=== PATIENT | female | born 1995 | race Caucasian/White ===

== ENCOUNTER 2018-05-17 06:55 | Emergency (ER) | payer BC ==
--- NOTE | 2018-05-17 07:40 | ER Document Report ---
ED General - General Chief Complaint: Abdominal Pain Stated Complaint: ABDOMINAL PAIN Time Seen by Provider: 05/17/18 07:16 Notes: Patient is a 23-year-old female that presents to the emergency department for chief complaint of abdominal pain. Patient reports he started having diffuse abdominal pain, over the last several days, and seemingly worsened, and has made his way down to the right lower quadrant, which she rates as a 7 out of 10 , the pain continues to be diffuse as well though, and seemingly getting progressively worse. She does have a history of an enlarged ovarian cyst, that has been being monitored, last time she had it evaluated was a few months ago. She also reports she has had rectal bleeding about a week ago but has not had any since then, she denies history of inflammatory bowel disease, she has had one other episode like this in the past, no rectal bleeding today. She denies having lightheadedness, fevers, chills, night sweats, dysuria, hematuria. Past Medical History: Ovarian cysts Past Surgical History: [place] teeth, tonsillectomy, adenoidectomy Social History: Denies tobacco use, admits to occasional alcohol use, and denies illicit drug use. Family History: Reviewed and noncontributory for presenting illness Allergies: Reviewed, see documented allergy list. REVIEW OF SYSTEMS: Other than noted above, the 12 point review of systems was reviewed with the patient and were negative, all pertinent findings are included in the HPI. PHYSICAL EXAMINATION: Vital signs reviewed, nursing noted reviewed. GENERAL: Well-appearing, well-nourished and appears uncomfortable HEAD: Atraumatic, normocephalic. EYES: Eyes appear normal, extraocular movements intact, sclera anicteric, conjunctiva are normal. ENT: nares patent, oropharynx clear without exudates. Moist mucous membranes. NECK: Normal range of motion, supple without lymphadenopathy LUNGS: Breath sounds clear to auscultation bilaterally and equal. No wheezes rales or rhonchi. HEART: Heart rate tachycardic, regular rhythm ABDOMEN: Soft, diffuse abdominal tenderness to palpation, worse in the left upper quadrant and right lower quadrant, normoactive bowel sounds. No rebound, guarding, or rigidity. No masses appreciated. EXTREMITIES: Nontender, good range of motion, no pitting or edema. NEUROLOGICAL: No focal neurological deficits. Moves all extremities spontaneously Motor and sensory grossly intact on exam. PSYCH: Normal mood, normal affect. SKIN: Warm, Dry, normal turgor, no rashes or lesions noted on exposed skin TRAVEL OUTSIDE OF THE [place] IN LAST 30 DAYS: No - Related Data Allergies/Adverse Reactions: No Known Allergies Allergy (Verified 05/17/18 07:41) Past Medical History - Social History Smoking Status: Never Smoker Family History: Reviewed & Not Pertinent Physical Exam - Vital signs Vitals: Temp Pulse Resp BP Pulse Ox 99.9 F 116 H 15 114/67 100 05/17/18 07:02 05/17/18 07:02 05/17/18 07:02 05/17/18 07:02 05/17/18 07:02 Course - Re-evaluation Re-evalutation: Patient seen and examined vital signs reviewed. Laboratory data and imaging were ordered as appropriate for the patient's presenting symptoms and complaint, with consideration of any critical or life threatening conditions that may be associated with their obtained history and exam as noted above. Patient was treated with IV fluids, Toradol, morphine for pain as well as Motrin for nausea Results were reviewed when available and demonstrated CT essentially unremarkable, possible ileus some small loops of bowel are mildly distended, appendix was normal, reevaluated the patient, she was still having pain, I did give her IV Dilaudid, which did seem to help her, I discussed this case with the on-call surgeon, who recommended obtaining a transvaginal ultrasound to evaluate for possible cyst, this did demonstrate an ovarian cyst, but this would not explain the patient's pain, I added a CRP to the patient's workup, which was markedly elevated at 89, I have a suspicion that this patient has inflammatory bowel disease such as Crohn's disease has she has had bloody bowel movements, and has some small bowel findings on CT imaging, I will give her a dose of Solu-Medrol, she was treated for possible urinary tract infection with Rocephin, as her UA was positive, I will discharge her on ciprofloxacin and Flagyl, for possible enteritis, infectious versus inflammatory, and with prednisone for 60 mg for 5 days, will advise follow-up with gastroenterology, patient given oxycodone to take for pain. She was agreeable to this plan of care, and advised if her symptoms did not improve or worsen to return to the emergency department. Evaluation was most consistent with abdominal pain, UTI, enteritis Results were discussed with the patient at this point, after careful consideration I feel that that patient can be discharged from the emergency department, the patient was educated treatments and reasons to return to the emergency department based on their presumed diagnosis as noted above, they were advised to followup with a primary care physician in 2-3 days. Patient was agreeable to plan of care. *Note is created using voice recognition software and may contain spelling, syntax or grammatical errors. Laboratory 05/17/18 05/17/18 05/17/18 08:00 08:00 08:00 WBC 17.8 H RBC 4.34 Hgb 13.9 Hct 39.9 MCV 92 MCH 32.1 MCHC 34.9 RDW 13.5 Plt Count 294 Seg Neutrophils % 88.8 H Lymphocytes % 6.9 L Monocytes % 4.1 Eosinophils % 0.0 Basophils % 0.2 Absolute Neutrophils 15.8 H Absolute Lymphocytes 1.2 Absolute Monocytes 0.7 Absolute Eosinophils 0.0 Absolute Basophils 0.0 Sodium 140.9 Potassium 4.4 Chloride 104 Carbon Dioxide 23 Anion Gap 14 BUN 12 Creatinine 0.83 Est GFR ( Amer) > 60 Est GFR (Non-Af Amer) > 60 Glucose 118 H Calcium 9.4 Total Bilirubin 1.9 H Direct Bilirubin 0.3 Neonat Total Bilirubin Not Reportable Neonat Direct Bilirubin Not Reportable Neonat Indirect Bili Not Reportable AST 19 ALT 22 Alkaline Phosphatase 65 Troponin I C-Reactive Protein Total Protein 6.9 Albumin 4.0 Lipase 32.2 Serum HCG, Qual NEGATIVE Urine Color Urine Appearance Urine pH Ur Specific Collins Urine Protein Urine Glucose (UA) Urine Ketones Urine Blood Urine Nitrite Urine Bilirubin Urine Urobilinogen Ur Leukocyte Esterase Urine WBC (Auto) Squamous Epi Cells Auto Amorphous Sediment Auto Urine Mucus (Auto) Urine Ascorbic Acid 05/17/18 05/17/18 05/17/18 08:00 08:00 08:00 WBC RBC Hgb Hct MCV MCH MCHC RDW Plt Count Seg Neutrophils % Lymphocytes % Monocytes % Eosinophils % Basophils % Absolute Neutrophils Absolute Lymphocytes Absolute Monocytes Absolute Eosinophils Absolute Basophils Sodium Potassium Chloride Carbon Dioxide Anion Gap BUN Creatinine Est GFR ( Amer) Est GFR (Non-Af Amer) Glucose Calcium Total Bilirubin Direct Bilirubin Neonat Total Bilirubin Neonat Direct Bilirubin Neonat Indirect Bili AST ALT Alkaline Phosphatase Troponin I < 0.012 C-Reactive Protein 89.3 H Total Protein Albumin Lipase Serum HCG, Qual Urine Color YELLOW Urine Appearance TURBID Urine pH 5.0 Ur Specific Collins 1.029 Urine Protein 30 H Urine Glucose (UA) NEGATIVE Urine Ketones 20 H Urine Blood NEGATIVE Urine Nitrite NEGATIVE Urine Bilirubin NEGATIVE Urine Urobilinogen NEGATIVE Ur Leukocyte Esterase LARGE H Urine WBC (Auto) 19 Squamous Epi Cells Auto 6 Amorphous Sediment Auto 1+ Urine Mucus (Auto) MANY Urine Ascorbic Acid NEGATIVE Abdomen/Pelvis CT 05/17/18 07:42 IMPRESSION: 1. THERE ARE A FEW LOOPS OF SMALL BOWEL IN THE LEFT UPPER QUADRANT WHICH ARE SOMEWHAT DILATED. THIS HAS A NONSPECIFIC APPEARANCE. THIS COULD REPRESENT MILD FOCAL ILEUS, POSSIBLE GASTROENTERITIS. DEVELOPING MECHANICAL OBSTRUCTION COULD BE POSSIBLE BUT LESS LIKELY. 2. NORMAL APPENDIX. 3. NO OTHER SIGNIFICANT OR ACUTE FINDING IN THE ABDOMEN OR PELVIS ON CT SCAN WITH IV CONTRAST. Transvaginal US 05/17/18 12:18 IMPRESSION: SIMPLE CYST IN THE RIGHT OVARY. OTHERWISE UNREMARKABLE TRANSVAGINAL PELVIC ULTRASOUND. - Vital Signs Vital signs: Temp Pulse Resp BP Pulse Ox 101.6 F H 81 16 121/66 98 05/17/18 11:25 05/17/18 11:25 05/17/18 11:25 05/17/18 11:25 05/17/18 11:25 - Laboratory Result Diagrams: 05/17/18 08:00 05/17/18 08:00 Laboratory results interpreted by me: 05/17/18 05/17/18 05/17/18 08:00 08:00 08:00 WBC 17.8 H Seg Neutrophils % 88.8 H Lymphocytes % 6.9 L Absolute Neutrophils 15.8 H Glucose 118 H Total Bilirubin 1.9 H C-Reactive Protein Urine Protein 30 H Urine Ketones 20 H Ur Leukocyte Esterase LARGE H 05/17/18 08:00 WBC Seg Neutrophils % Lymphocytes % Absolute Neutrophils Glucose Total Bilirubin C-Reactive Protein 89.3 H Urine Protein Urine Ketones Ur Leukocyte Esterase Discharge - Discharge Clinical Impression: Abdominal pain Qualifiers: Abdominal location: generalized Qualified Code(s): R10.84 - Generalized abdominal pain Ovarian cyst Qualifiers: Laterality: right Qualified Code(s): N83.201 - Unspecified ovarian cyst, right side UTI (urinary tract infection) Qualifiers: Urinary tract infection type: site unspecified Hematuria presence: without hematuria Qualified Code(s): N39.0 - Urinary tract infection, site not specified Condition: Stable Disposition: HOME, SELF-CARE Instructions: Abdominal Pain ([facility]), Urinary Tract Infection ([facility]) Additional Instructions: Please follow-up with gastroenterology, call for an appointment today or tomorrow, take all medications as prescribed, slowly increase her diet from clear liquids, to advance to more solid foods over the next 3-4 days. If your symptoms are worsening or not controlled at home, do not hesitate to return to the emergency department. Prescriptions: Oxycodone HCl [Oxy-Ir 5 mg Tablet] 5 mg PO Q6HP PRN #14 tab PRN Reason: abdominal pain Ciprofloxacin HCl [Cipro 500 mg Tablet] 500 mg PO BID #14 tablet Metronidazole [Flagyl] 500 mg PO Q8H #21 tablet Prednisone [Deltasone 20 mg Tablet] 3 tab PO DAILY #15 tablet Referrals: MARY PONCE MD [ACTIVE STAFF] - Follow up tomorrow NIRMALA NELSON MD [ACTIVE STAFF] - Follow up tomorrow
[2018-05-17] MEDS ORDERED: RINGERS SOLUTION,LACTATED 1,000 ML IV ONE (07:41)
[2018-05-17] MEDS ORDERED: MORPHINE SULFATE 10 MG/ML INJ IV ONE (07:42)
[2018-05-17] MEDS ORDERED: ONDANSETRON HCL INJ/PF 4 MG/2 ML SDV IV ONE (07:42)
[2018-05-17 08:24] LABS: AMORPHOUS SEDIMENT,URINE 1+ /HPF; APPEARANCE,URINE TURBID; BILIRUBIN,URINE NEGATIVE (NEGATIVE); COLOR,URINE YELLOW; GLUCOSE, URINE NEGATIVE (NEGATIVE); KETONES,URINE 20 mg/dL (NEGATIVE); LEUKOCYTE ESTERASE,URINE LARGE (NEGATIVE); NITRITE,URINE NEGATIVE (NEGATIVE); PROTEIN,URINE 30 mg/dL (NEGATIVE); URINE SPECIFIC GRAVITY 1.029; UROBILINOGEN,URINE NEGATIVE mg/dL (<2.0)
[2018-05-17 08:28] LABS: ABSOLUTE LYMPHOCYTES (AUTO) 1.2 10^3/uL (0.5-4.7); ABSOLUTE MONOCYTES (AUTO) 0.7 10^3/uL (0.1-1.4); ABSOLUTE NEUT (AUTO) 15.8 10^3/uL (1.7-8.2); BASOPHILS % (AUTO) 0.2 % (0-2); HEMATOCRIT 39.9 % (36.0-47.0); HEMOGLOBIN 13.9 g/dL (12.0-15.5); LYMPHOCYTES % (AUTO) 6.9 % (13-45); MEAN CORPUSCULAR HEMOGLOBIN 32.1 pg (27.0-33.4); MEAN CORPUSCULAR HGB CONC 34.9 g/dL (32.0-36.0); MEAN CORPUSCULAR VOLUME 92 fl (80-97); MONOCYTES % (AUTO) 4.1 % (3-13); PLATELET COUNT 294 10^3/uL (150-450); RED BLOOD COUNT 4.34 10^6/uL (3.72-5.28); RED CELL DISTRIBUTION WIDTH 13.5 % (11.5-14.0); SEGMENTED NEUTROPHILS % (AUTO) 88.8 % (42-78); TOTAL CELLS COUNTED % (AUTO) 100 %; WHITE BLOOD COUNT 17.8 10^3/uL (4.0-10.5)
[2018-05-17 08:47] LABS: ALANINE AMINOTRANSFERASE 22 U/L (9-52); ALKALINE PHOSPHATASE 65 U/L (38-126); ANION GAP 14 (5-19); ASPARTATE AMINO TRANSFERASE 19 U/L (14-36); BILIRUBIN,DIRECT 0.3 mg/dL (0.0-0.4); BILIRUBIN,TOTAL 1.9 mg/dL (0.2-1.3); BLOOD UREA NITROGEN 12 mg/dL (7-20); CALCIUM 9.4 mg/dL (8.4-10.2); CARBON DIOXIDE 23 mmol/L (22-30); CHLORIDE 104 mmol/L (98-107); GLUCOSE 118 mg/dL (75-110); LIPASE 32.2 U/L (23-300); POTASSIUM 4.4 mmol/L (3.6-5.0); SODIUM 140.9 mmol/L (137-145); TOTAL PROTEIN 6.9 g/dL (6.3-8.2)
--- NOTE | 2018-05-17 11:00 | RADIOLOGY REPORT (SQ) ---
EXAM DESCRIPTION: CT ABD/PELVIS WITH IV ONLY COMPLETED DATE/TIME: 05/17/2018 10:33 am REASON FOR STUDY: rlq abdominal pain COMPARISON: None. TECHNIQUE: CT scan of the abdomen and pelvis performed using helical scanning technique with dynamic intravenous contrast injection. No oral contrast. Images reviewed with lung, soft tissue, and bone windows. Reconstructed coronal and sagittal MPR images reviewed. Delayed images for evaluation of the urinary system also acquired. All images stored on PACS. All CT scanners at this facility use dose modulation, iterative reconstruction, and/or weight based d osing when appropriate to reduce radiation dose to as low as reasonably achievable (ALARA). [facility]: Dose Right [facility]: CareDose [facility]: Dose Right [facility]: Teradose 4D [facility]: [employer] CONTRAST TYPE AND DOSE: contrast/concentration: Isovue 350.00 mg/ml; Total Contrast Delivered: 100.0 ml; Total Saline Delivered: 72.0 ml RENAL FUNCTION: GFR > 60. RADIATION DOSE: CT Rad equipment meets quality standard of care and radiation dose reduction techniq ues were employed. CTDIvol: 13.8 - 17.7 mGy. DLP: 1757 mGy-cm.. LIMITATIONS: None. FINDINGS: LOWER CHEST: No significant findings. No nodules or infiltrates. LIVER: Normal size. No masses. No dilated ducts. SPLEEN: Normal size. No focal lesions. PANCREAS: No masses. No significant calcifications. No adjacent inflammation or peripancreatic fluid collections. Pancreatic duct not dilated. GALLBLADDER: No identified stones by CT criteria. No inflammatory changes to suggest cholecystitis. ADRENAL GLANDS: No significant masses or asymmetry. RIGHT KIDNEY AND URETER: No solid masses. No significant calcifications. No hydronephrosis or hyd roureter. LEFT KIDNEY AND URETER: No solid masses. No significant calcifications. No hydronephrosis or hydr oureter. AORTA AND VESSELS: No aneurysm. No dissection. Renal arteries, SMA, celiac without stenosis. RETROPERITONEUM: No retroperitoneal adenopathy, hemorrhage or masses. BOWEL AND PERITONEAL CAVITY: Dilation of a few of the proximal small bowel loops in the left upper qu adrant. No masses or inflammatory changes. No free fluid or peritoneal masses. APPENDIX: Normal. PELVIS: No mass. No free fluid. Normal bladder. ABDOMINAL WALL: No masses. No hernias. BONES: No significant or acute findings. OTHER: No other significant finding. IMPRESSION: 1. THERE ARE A FEW LOOPS OF SMALL BOWEL IN THE LEFT UPPER QUADRANT WHICH ARE SOMEWHAT DILATED. THIS HAS A NONSPECIFIC APPEARANCE. THIS COULD REPRESENT MILD FOCAL ILEUS, POSSIBLE GASTROENTERITIS. DEVE LOPING MECHANICAL OBSTRUCTION COULD BE POSSIBLE BUT LESS LIKELY. 2. NORMAL APPENDIX. 3. NO OTHER SIGNIFICANT OR ACUTE FINDING IN THE ABDOMEN OR PELVIS ON CT SCAN WITH IV CONTRAST. TECHNICAL DOCUMENTATION: JOB ID: [id number] Quality ID # [id number]: Final reports with documentation of one or more dose reduction techniques (e.g., Au tomated exposure control, adjustment of the mA and/or kV according to patient size, use of iterative reconstruction technique) 2010 [employer]- All Rights Reserved Reading location - IP/workstation name: [email or web address]
[2018-05-17] MEDS ORDERED: CEFTRIAXONE INJ 1000 MG VIAL IV ONE (11:31)
[2018-05-17] MEDS ORDERED: KETOROLAC TROMETHAMINE INJ/PF 30 MG/1 ML SDV IV ONE (11:32)
[2018-05-17] MEDS ORDERED: ACETAMINOPHEN 325 MG TABLET PO ONE (11:32)
[2018-05-17] MEDS ORDERED: CEFTRIAXONE 1 GM/D5W RTU 1 GM/50 ML RTUPB IV ONE (11:45)
[2018-05-17] MEDS ORDERED: HYDROMORPHONE HCL INJ/PF 2 MG/ML AMPULE IV ONE ×2 (12:18→15:43)
--- NOTE | 2018-05-17 15:38 | RADIOLOGY REPORT (SQ) ---
EXAM DESCRIPTION: U/S NON OB PEL TV W/DOPPLER COMPLETED DATE/TIME: 05/17/2018 2:15 pm REASON FOR STUDY: pelvic and abdominal pain COMPARISON: None. TECHNIQUE: Dynamic and static grayscale images acquired of the pelvis via transvaginal approach and recorded on PACS. Additional selected color Doppler and spectral images recorded. LIMITATIONS: None. FINDINGS: UTERUS: Contour normal. No mass. ENDOMETRIAL STRIPE: No focal or generalized thickening. No masses. CERVIX: No nabothian cysts. RIGHT OVARY AND DOPPLER: Normal size. 2.2 cm cyst. No worrisome masses. Normal arterial vascular fl ow without evidence for torsion. LEFT OVARY AND DOPPLER: Normal size. No worrisome masses. Normal arterial vascular flow without evide nce for torsion. FREE FLUID: None noted. OTHER: No other significant finding. MEASUREMENTS: UTERUS: 3.2 x 4.6 x 7.5 cm. ENDOMETRIAL STRIPE: 3 mm. RIGHT OVARY: 1.9 x 2.1 x 2.9 cm. LEFT OVARY: 1.3 x 1.5 x 2.4 cm. IMPRESSION: SIMPLE CYST IN THE RIGHT OVARY. OTHERWISE UNREMARKABLE TRANSVAGINAL PELVIC ULTRASOUND. TECHNICAL DOCUMENTATION: JOB ID: [id number] [employer]- All Rights Reserved Rev Reading location - IP/workstation name: [facility]
[2018-05-17] MEDS ORDERED: METHYLPREDNISOLONE INJ 125 MG/2 ML SDV IV ONE (15:43)
[2018-05-17 17:41] VITALS: BP 120/71
== END 2018-05-17 17:38 | disposition home or self-care (01) ==
LOC: ER 06:55
DX: N83.201 Unspecified ovarian cyst, right side (principal); N39.0 Urinary tract infection, site not specified; R10.84 Generalized abdominal pain; R10.31 Right lower quadrant pain; K62.5 Hemorrhage of anus and rectum
CPT/HCPCS: 99284; 36415; 83690; 84703; 85025; 86140; 80053; 81001; 84484; 76830; 93976; 74177; J2930; J1885; J2270; J1170; J2405; J7120; J0696

== ENCOUNTER 2018-09-06 13:47 | Emergency (ER) | payer OTHER, BC ==
[2018-09-06] MEDS ORDERED: IBUPROFEN 800 MG TABLET PO ONE (14:44)
[2018-09-06] MEDS ORDERED: PROCHLORPERAZINE MALEATE 10 MG TABLET PO ONE (14:44)
[2018-09-06] MEDS ORDERED: DIPHENHYDRAMINE HCL 50 MG CAPSULE PO ONE (14:44)
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
[2018-09-06 15:11] VITALS: BP 107/81
== END 2018-09-06 15:10 | disposition home or self-care (01) ==
LOC: ER 13:47
DX: S16.1XXA Strain of muscle, fascia and tendon at neck level, initial encounter (principal); M54.2 Cervicalgia; V87.7XXA Person injured in collision between other specified motor vehicles (traffic), initial encounter; Z87.891 Personal history of nicotine dependence
CPT/HCPCS: 99283; S0183

== ENCOUNTER 2019-02-09 20:40 | Emergency (ER) | payer BC, OTHER ==
[2019-02-09] MEDS ORDERED: MAG HYDROX/AL HYDROX/SIMETH SUSP 30 ML UDCUP PO ONE (22:32)
[2019-02-09] MEDS ORDERED: METOCLOPRAMIDE HCL ORAL SOLN 10 MG/10 ML UDCUP PO ONE (22:32)
[2019-02-09] MEDS ORDERED: LIDOCAINE 2% VISCOUS SOLN 20 ML UDCUP PO ONE (22:32)
--- NOTE | 2019-02-09 22:33 | ER Document Report ---
HPI - HPI Time Seen by Provider: 02/09/19 22:06 Pain Level: 4 Notes: Patient is an otherwise healthy 23-year-old female presenting to the emergency department with complaints of headache that is been ongoing for 2 days after she reports she fell and possibly hit her head onto a grassy surface. Patient reports since that time she has been having consistent headaches. She denies any loss of consciousness and denies any vomiting. She now reports that while she was out to dinner with her cortez she ate and appetizer and then developed midsternal chest pain that felt like a burning pain. She denied any radiation of this pain and at the time of my evaluation reports that the pain is gone. She denies any cardiac history and does not have any cardiac risk factors. - REPRODUCTIVE Reproductive: DENIES: : Past Medical History - General Information source: Patient - Social History Smoking Status: Never Smoker Frequency of alcohol use: None Drug Abuse: None Family History: Reviewed & Not Pertinent Neurological Medical History: Reports: Hx Migraine Renal/ Medical History: Denies: Hx Peritoneal Dialysis Past Surgical History: Reports: Hx Tonsillectomy - Immunizations Immunizations up to date: Yes Hx Diphtheria, Pertussis, Tetanus Vaccination: Yes Vertical Provider Document - CONSTITUTIONAL Notes: PHYSICAL EXAMINATION: GENERAL: Well-appearing, well-nourished and in no acute distress. HEAD: Atraumatic, normocephalic. EYES: Pupils equal round and reactive to light, extraocular movements intact, conjunctiva are normal. ENT: Nares patent, oropharynx clear without exudates. Moist mucous membranes. NECK: Normal range of motion, supple without lymphadenopathy LUNGS: Breath sounds clear to auscultation bilaterally and equal. No wheezes rales or rhonchi. HEART: Regular rate and rhythm without murmurs ABDOMEN: Soft, nontender, nondistended abdomen. No guarding, no rebound. No masses appreciated. Female : deferred Musculoskeletal: Normal range of motion, no pitting or edema. No cyanosis. NEUROLOGICAL: Cranial nerves grossly intact. Normal speech, normal gait. Normal sensory, motor exams PSYCH: Normal mood, normal affect. SKIN: Warm, Dry, normal turgor, no rashes or lesions noted. - INFECTION CONTROL TRAVEL OUTSIDE OF THE [place] IN LAST 30 DAYS: No Course - Re-evaluation Re-evalutation: All imaging performed was negative for any acute findings. Patient's pain in her chest did come back while she was here as a burning pain, she was given a GI cocktail and had complete symptom resolution. She was treated for her headache at the time of discharge with Fioricet. I encouraged her to keep a diary of her symptoms if they return so that when she follows up with her primary care provider they will have a better idea of what may be causing her chest pain. Patient has no cardiac risk factors other than obesity, she is young and healthy and I do not feel cardiac work-up is necessary at this time as it is very unlikely she has ACS. 02/10/19 01:15 The patient's emergency department workup and current diagnosis were explained to the patient and or family. Follow-up instructions were provided. Medications if prescribed were discussed. Instructions for when to return to the emergency department including specific worrisome symptoms were discussed with the patient and/or family. - Vital Signs Vital signs: Temp Pulse Resp BP Pulse Ox 98.2 F 77 20 127/81 H 97 02/09/19 20:51 02/09/19 20:51 02/09/19 20:51 02/09/19 20:51 02/09/19 20:51 Discharge - Discharge Clinical Impression: Headache Qualifiers: Headache type: unspecified Headache chronicity pattern: episodic headache Intractability: not intractable Qualified Code(s): R51 - Headache Chest pain Qualifiers: Chest pain type: unspecified Qualified Code(s): R07.9 - Chest pain, unspecified Condition: Stable Disposition: HOME, SELF-CARE Additional Instructions: Chest Pain of Unclear Cause The exact cause of your chest pain isn't clear. Fortunately, there is no evidence of a dangerous medical condition. Further testing may be required to find the source of the pain. Most often, we find that this pain is coming from the chest wall -- the muscles or rib joints in the chest. But chest pain can come from the lung and lung lining, the esophagus, the heart valves or heart lining, and even the stomach or gallbladder. Rest. Eat lightly until the pain is gone. We may prescribe medicine for pain and inflammation. You should call the physician immediately if the pain radiates to the shoulder, jaw or arms; if you start to run a fever or develop a cough; or if you develop shortness of breath, or other new or alarming symptoms. You have also been seen in the Emergency Department (ED) for a headache. Please use Tylenol (acetaminophen) or Motrin (ibuprofen) as needed for symptoms, but only as written on the box. As we have discussed, please follow up with your primary care doctor as soon as possible regarding today's ED visit and your headache symptoms. Call your doctor or return to the ED if you have a worsening headache, sudden and severe headache, confusion, slurred speech, facial droop, weakness or numbness in any arm or leg, extreme fatigue, or other symptoms that concern you. Forms: Return to Work Referrals: DARIUS WINSTON MD [Primary Care Provider] - Follow up as needed
--- NOTE | 2019-02-09 23:11 | RADIOLOGY REPORT (SQ) ---
EXAM DESCRIPTION: XR CHEST 2 VIEWS COMPLETED DATE/TME: 02/09/2019 22:28 CLINICAL HISTORY: chest pain COMPARISON: None. FINDINGS: Frontal and lateral views of the chest. The cardiomediastinal silhouette has normal size and contour. No consolidation, pneumothorax, or pleural effusion. No acute osseous abnormality. Upper abdominal soft tissues are unremarkable. IMPRESSION: 1. No acute pulmonary process identified.
--- NOTE | 2019-02-09 23:58 | RADIOLOGY REPORT (SQ) ---
EXAM DESCRIPTION: CT HEAD WITHOUT IV CONTRAST COMPLETED DATE/TME: 02/09/2019 22:28 CLINICAL HISTORY: fall, headache COMPARISON: None available TECHNIQUE: Axial CT of the head obtained from the skull apex to the skull base without contrast. FINDINGS: No acute intracranial hemorrhage identified. No mass, mass effect, shift of the midline, abnormal extra-axial fluid collection or CT evidence of acute ischemic change identified. The ventricular system is unremarkable. No acute abnormalities of the supratentorial white matter, basal ganglia, cerebellum, or brainstem. The visualized paranasal sinuses and the mastoids are clear. No skull fracture identified. Visualized orbits and globes are unremarkable. DLP: 855.55 mGy-cm IMPRESSION: 1. No acute intracranial abnormality identified. This exam was performed according to our departmental dose-optimization program, which includes automated exposure control, adjustment of the mA and/or kV according to patient size and/or use of iterative reconstruction technique.
[2019-02-10] MEDS ORDERED: BUTALB/ACETAMINOPHEN/CAFFEINE 1 TAB EACH PO ONE (01:06)
[2019-02-10 01:15] VITALS: BP 125/75
== END 2019-02-10 02:13 | disposition home or self-care (01) ==
LOC: ER 20:40
DX: R51 Headache (principal); R07.9 Chest pain, unspecified
CPT/HCPCS: 71046; 70450; J3490 ×2; 99285

== ENCOUNTER 2019-03-04 11:15 | Emergency (ER) | payer OTHER ==
--- NOTE | 2019-03-04 11:41 | ER Document Report ---
ED Medical Screen (RME) - General Chief Complaint: Facial Swelling Stated Complaint: FACIAL SWELLING, NAUSEA Time Seen by Provider: 03/04/19 11:37 Primary Care Provider: DARIUS WINSTON MD [Primary Care Provider] - Follow up as needed Mode of Arrival: Ambulatory Information source: Patient Notes: Patient is a 23-year-old female presented to the emergency department chief complaint of possible abscess. Patient reports approximately 2 days ago she noted what appeared to be a pimple to the left side of her face. She now reports facial swelling and pain over the left side of her chin. She denies any history of abscesses and denies history of MRSA. Exam: Swelling and induration noted to left side of face over the chin. I have greeted and performed a rapid initial assessment of this patient. A comprehensive ED assessment and evaluation of the patient, analysis of test results and completion of the medical decision making process will be conducted by additional ED providers. I have specifically instructed the patient or family members with the patient to immediately return to any nursing staff should anything change in the patient's condition or with their chief complaint. This medical record was dictated with voice recognizing software. There may be grammatical, syntax errors that are unintended. TRAVEL OUTSIDE OF THE [place] IN LAST 30 DAYS: No - Related Data Allergies/Adverse Reactions: No Known Allergies Allergy (Verified 05/17/18 07:41) Past Medical History Neurological Medical History: Reports: Hx Migraine Renal/ Medical History: Denies: Hx Peritoneal Dialysis Past Surgical History: Reports: Hx Tonsillectomy - Immunizations Immunizations up to date: Yes Hx Diphtheria, Pertussis, Tetanus Vaccination: Yes Physical Exam - Vital signs Vitals: Temp Pulse Resp BP Pulse Ox 98.6 F 79 16 136/80 H 99 03/04/19 11:03/04/19 11:03/04/19 11:03/04/19 11:03/04/19 11:22 Course - Vital Signs Vital signs: Temp Pulse Resp BP Pulse Ox 98.6 F 79 16 136/80 H 99 03/04/19 11:22 03/04/19 11:03/04/19 11:03/04/19 11:03/04/19 11:22 Doctor's Discharge - Discharge Referrals: DARIUS WINSTON MD [Primary Care Provider] - Follow up as needed
[2019-03-04] MEDS ORDERED: CEPHALEXIN 500 MG CAPSULE PO ONE (14:20)
[2019-03-04] MEDS ORDERED: DOXYCYCLINE HYCLATE 100 MG TABLET PO ONE (14:23)
--- NOTE | 2019-03-04 14:24 | ER Document Report ---
ED Skin Rash/Insect Bite/Abscs - General Chief Complaint: Facial Swelling Stated Complaint: FACIAL SWELLING, NAUSEA Time Seen by Provider: 03/04/19 11:37 Primary Care Provider: DARIUS WINSTON MD [Primary Care Provider] - Follow up in 3-5 days Mode of Arrival: Ambulatory Information source: Patient Notes: 23-year-old female presented to ED for a cellulitis to the left side of her face. She states she had a pimple that she is been pinching for the last couple days and it is progressively gotten bigger and more swollen. She is concerned because it is so large. Patient is alert oriented respirations regular and unlabored speaking in full sentences. TRAVEL OUTSIDE OF THE [place] IN LAST 30 DAYS: No - HPI Patient complains to provider of: Tender/swollen area Onset: Other Onset/Duration: Gradual - 2 days, Worse Quality of pain: Pressure Skin Character: Erythema, Swelling, Tenderness Quality of rash: Painful Identify cause: Yes Exacerbated by: Denies Relieved by: Denies Similar symptoms previously: Yes Recently seen / treated by doctor: No - Related Data Allergies/Adverse Reactions: No Known Allergies Allergy (Verified 05/17/18 07:41) Past Medical History - General Information source: Patient - Social History Smoking Status: Never Smoker Chew tobacco use (# tins/day): No Frequency of alcohol use: Social Drug Abuse: None Lives with: Family Family History: Reviewed & Not Pertinent Patient has suicidal ideation: No Patient has homicidal ideation: No - Past Medical History Cardiac Medical History: Reports: None Pulmonary Medical History: Reports: None EENT Medical History: Reports: None Neurological Medical History: Reports: Hx Migraine Endocrine Medical History: Reports: None Renal/ Medical History: Reports: None Malignancy Medical History: Reports: None GI Medical History: Reports: None Musculoskeletal Medical History: Reports None Skin Medical History: Reports Hx Cellulitis Psychiatric Medical History: Reports: None Traumatic Medical History: Reports: None Infectious Medical History: Reports: None Past Surgical History: Reports: Hx Adenoidectomy, Hx Oral Surgery, Hx Orthopedic Surgery - Trigger finger release, Hx Tonsillectomy - Immunizations Immunizations up to date: Yes Hx Diphtheria, Pertussis, Tetanus Vaccination: Yes Review of Systems - Review of Systems Constitutional: No symptoms reported EENT: Other - Erythema and swelling to the left side of her face with a small abscess to the left chin. Cardiovascular: No symptoms reported Respiratory: No symptoms reported Gastrointestinal: No symptoms reported Genitourinary: No symptoms reported Female Genitourinary: No symptoms reported Musculoskeletal: No symptoms reported Skin: Change in color - Erythema and swelling to the left side of the face with small abscess to the left chin. Hematologic/Lymphatic: No symptoms reported Neurological/Psychological: No symptoms reported -: Yes All other systems reviewed and negative Physical Exam - Vital signs Vitals: Temp Pulse Resp BP Pulse Ox 98.6 F 79 16 136/80 H 99 03/04/19 11:22 03/04/19 11:22 03/04/19 11:22 03/04/19 11:22 03/04/19 11:22 Interpretation: Normal - General General appearance: Appears well, Alert - HEENT Head: Normocephalic, Atraumatic Eyes: Normal Pupils: PERRL - Respiratory Respiratory status: No respiratory distress Chest status: Nontender Breath sounds: Normal Chest palpation: Normal - Cardiovascular Rhythm: Regular Heart sounds: Normal auscultation Murmur: No - Abdominal Inspection: Normal Distension: No distension Bowel sounds: Normal Tenderness: Nontender Organomegaly: No organomegaly - Back Back: Normal, Nontender - Extremities General upper extremity: Normal inspection, Nontender, Normal color, Normal ROM, Normal temperature General lower extremity: Normal inspection, Nontender, Normal color, Normal ROM, Normal temperature, Normal weight bearing. No: Celso's sign - Neurological Neuro grossly intact: Yes Cognition: Normal Orientation: AAOx4 [place] Coma Scale Eye Opening: Spontaneous [place] Coma Scale Verbal: Oriented [place] Coma Scale Motor: Obeys Commands [place] Coma Scale Total: 15 Speech: Normal Motor strength normal: LUE, RUE, LLE, RLE Sensory: Normal - Psychological Associated symptoms: Normal affect, Normal mood - Skin Skin Temperature: Warm Skin Moisture: Dry Skin Color: Normal Skin irregularity: Abscess Location of irregularity: Face - Left side of the face with a small abscess to the left chin Character of irregularity: Erythematous Irregularity with: Swelling, Tenderness, Warmth Course - Vital Signs Vital signs: Temp Pulse Resp BP Pulse Ox 97.9 F 84 16 124/80 100 03/04/19 14:52 03/04/19 14:52 03/04/19 14:52 03/04/19 14:52 03/04/19 14:52 Procedures - Incision and Drainage Left chin Time completed: 14:45 Type: Simple Anesthetic type: Other mL's of anesthetic: 0 Blade size: Other - 18-gauge needle I&D procedure: Betadine prep applied Incision Method: Incision made with needle Amount/type of drainage: Small amount purulent Discharge - Discharge Clinical Impression: Cellulitis and abscess of face Condition: Stable Disposition: HOME, SELF-CARE Additional Instructions: ABSCESS: You have an abscess (boil). This a pus-forming infection, usually due to staph. Some boils may be left to drain on their own, but most require lancing. Your abscess does not need lancing at this time. Initially 1 and was able to give her some narcotics for pain Discussed the face Epsom Salt Soaks Soak the wound area in a container of warm epsom salt water. If you can't get the wound area into a bucket or mccarthy, use a folded towel soaked in the epsom salt solution and apply to the area. Use clean hot tap water (about the temperature of a very warm bath), mixing in about one (1) teaspoon for every pint of water. Two gallon --> 16 teaspoons Epsom Salts One gallon --> 8 teaspoons Epsom Salts Two quarts --> 4 teaspoons Epsom Salts One quart --> 2 teaspoons Epsom Salts Soak the wound for about 20 minutes while gently moving it around in the water. Repeat this four (4) times a day. DOXYCYCLINE: Doxycycline (Vibramycin, Doryx) is an antibiotic of the tetracycline family. This type of drug is useful for infections of the respiratory tract and genital tract, and is sometimes used for intestinal infections. Unlike most tetracyclines, doxycycline can be taken with food. It is longer acting, and (usually) less prone to side effects than regular tetracycline. Tetracycline antibiotics can stain immature teeth and SHOULD NOT BE TAKEN BY CHILDREN, NURSING MOTHERS, OR WOMEN. Tetracyclines can make you more prone to sunburn. Abdominal cramping, nausea, and diarrhea are occasional side effects. Women may experience vaginal yeast infections. Call the doctor at once if you develop hives, itching, shortness of breath, or lightheadedness. FOLLOW-UP CARE: Most simple abscesses will not require a follow up visit. If you had packing placed in the abscess, remove it as instructed by the physician. If you have been referred to a physician for follow-up care, call the physicians office for an appointment as you were instructed or within the next two days. If you experience worsening or a significant change in your symptoms, return to the Em ergency Department at any time for re-evaluation. Prescriptions: Doxycycline Hyclate 100 mg PO BID #20 capsule Forms: Elevated Blood Pressure Referrals: DARIUS WINSTON MD [Primary Care Provider] - Follow up in 3-5 days
[2019-03-04 15:05] VITALS: BP 124/80
== END 2019-03-04 14:52 | disposition home or self-care (01) ==
LOC: ER 11:15
DX: L03.211 Cellulitis of face (principal); R11.0 Nausea
CPT/HCPCS: 99283

== ENCOUNTER 2019-03-06 18:25 | Observation (INO) | payer OTHER ==
[2019-03-06] MEDS ORDERED: OXYCODONE-ACETAMINOPHEN 5-325 MG TABLET PO ONE (19:58)
--- NOTE | 2019-03-06 20:01 | ER Document Report ---
ED Medical Screen (RME) - General Chief Complaint: Abscess Stated Complaint: CHIN PAIN Time Seen by Provider: 03/06/19 19:44 Primary Care Provider: DARIUS WINSTON MD [Primary Care Provider] - Follow up as needed Mode of Arrival: Ambulatory Information source: Patient Notes: Patient is an otherwise healthy 23-year-old female presenting to the emergency department with concern for continued abscess on her face. Patient reports she was seen here in this emergency department 3 days ago and had the area lanced. She then went to [facility] the next day where they did an I&D with any scalpel. She then went to her primary care provider today who told her to go to the [facility] for surgical incision and drainage. She states and [facility] they did another needle incision but did not talk to surgery. Patient reports continued pain and swelling to her face. She denies running any fevers. She was initially started on doxycycline by this ER, [facility] told her to stop taking that and started her on Keflex only. She states her primary care provider, Dr. Winston told her to stop taking all medication. She is very concerned and feels like she has been getting the run around. Exam: Area of induration with fluctuance noted to left side of chin extending up into the lower cheek. I did call and speak with our surgeon in hopes of at least setting up an outp atient surgical consult. He requested that we order a CT with IV contrast to evaluate the abscess. I have greeted and performed a rapid initial assessment of this patient. A comprehensive ED assessment and evaluation of the patient, analysis of test results and completion of the medical decision making process will be conducted by additional ED providers. I have specifically instructed the patient or family members with the patient to immediately return to any nursing staff should anything change in the patient's condition or with their chief complaint. This medical record was dictated with voice recognizing software. There may be grammatical, syntax errors that are unintended. TRAVEL OUTSIDE OF THE [place] IN LAST 30 DAYS: No - Related Data Allergies/Adverse Reactions: No Known Allergies Allergy (Verified 03/06/19 18:28) Past Medical History Neurological Medical History: Reports: Hx Migraine Renal/ Medical History: Denies: Hx Peritoneal Dialysis Skin Medical History: Reports Hx Cellulitis Past Surgical History: Reports: Hx Adenoidectomy, Hx Oral Surgery, Hx Orthopedic Surgery - Trigger finger release, Hx Tonsillectomy - Immunizations Immunizations up to date: Yes Hx Diphtheria, Pertussis, Tetanus Vaccination: Yes Physical Exam - Vital signs Vitals: Temp Pulse Resp BP Pulse Ox 99.2 F 73 20 128/83 H 97 03/06/19 18:35 03/06/19 18:35 03/06/19 18:35 03/06/19 18:35 03/06/19 18:35 Course - Vital Signs Vital signs: Temp Pulse Resp BP Pulse Ox 99.2 F 73 20 128/83 H 97 03/06/19 18:35 03/06/19 18:35 03/06/19 18:35 03/06/19 18:35 03/06/19 18:35 Doctor's Discharge - Discharge Referrals: DARIUS WINSTON MD [Primary Care Provider] - Follow up as needed
--- NOTE | 2019-03-06 21:13 | ER Document Report ---
ED Skin Rash/Insect Bite/Abscs - General Chief Complaint: Abscess Stated Complaint: CHIN PAIN Time Seen by Provider: 03/06/19 19:44 Primary Care Provider: DARIUS WINSTON MD [Primary Care Provider] - Follow up as needed Mode of Arrival: Ambulatory Notes: 23-year-old otherwise healthy female here for a chin abscess for the last week. She has had some drainage. She has been seen at three other facilities and had the area attempted to be I and D'd with minimal relief twice over the last 3 days. She did take 1 dose of doxycycline and 1 dose of Keflex. She returns here for surgical consultation after being sent over by her PCP Dr. Graham. 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 She has had fever T-max 101. No history of diabetes or asthma. She states she was told by her PCP to stop the antibiotics. She states secondary to worsening symptoms she came in for evaluation. She has no trouble breathing or swallowing. No history of these before. No other complaints at this time. Denies . TRAVEL OUTSIDE OF THE [place] IN LAST 30 DAYS: No - HPI Similar symptoms previously: No Recently seen / treated by doctor: Yes - Related Data Allergies/Adverse Reactions: No Known Allergies Allergy (Verified 03/06/19 18:28) Past Medical History - General Information source: Patient - Social History Smoking Status: Never Smoker Chew tobacco use (# tins/day): No Frequency of alcohol use: Social Drug Abuse: None Lives with: Spouse/Significant other Family History: Reviewed & Not Pertinent Patient has suicidal ideation: No Patient has homicidal ideation: No Neurological Medical History: Reports: Hx Migraine Endocrine Medical History: Denies: Hx Diabetes Mellitus Type 1, Hx Diabetes Mellitus Type 2 Renal/ Medical History: Denies: Hx Peritoneal Dialysis Skin Medical History: Reports Hx Cellulitis Past Surgical History: Reports: Hx Adenoidectomy, Hx Oral Surgery, Hx Orthopedic Surgery - Trigger finger release, Hx Tonsillectomy - Immunizations Immunizations up to date: Yes Hx Diphtheria, Pertussis, Tetanus Vaccination: Yes Review of Systems - Review of Systems -: Yes All other systems reviewed and negative - To include 10 systems, unless mentioned in the hpi. Physical Exam - Vital signs Vitals: Temp Pulse Resp BP Pulse Ox 99.2 F 73 20 128/83 H 97 03/06/19 18:35 03/06/19 18:35 03/06/19 18:35 03/06/19 18:35 03/06/19 18:35 Interpretation: Normal Notes: GENERAL_APPEARANCE: well_nourished, alert, cooperative, no_acute distress, mild_obvious discomfort. Pleasant, obese young white female, smiling, speaking in full sentences, in no sign of pain or resp distress, easily sitting up, significant other at bedside VITALS: reviewed, see vital signs table. HEENT: PERRL, EOMI, no pharyngeal edema, normal speech, no nasal drainage, no airway obstruction, uvula midline. no drooling, tripoding, voice change or stridor. no dental abscess. no sign of salivary gland stone. tongue protrudes midline. no tongue or lip swelling. no sign of paratitis. no lymphadenopathy. NECK: full rom. full strength. no meningeal signs. no thyromegally. no swelling, ttp, or masses. HEART: RRR LUNGS: CTAB EXTREMITIES: good pulses in all extremities, no edema. Full rom. full strength. brisk cap refill. Normal gait. no other swelling or ttp. 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 SKIN: there is an approx 2cm x 2cm erythematous indurated area with a central draining pustule with scant purulence draining from the area. area ttp. no fluctuaiton, bleeding, streaking, no sign of ludwigs. warm, dry, good_color, no other drainage, streaking, induration, fluctuation, or bleeding. no sign of ludwigs. no grossly visible or palpable fb, no sign of compartment syndrome or septic jt. area ttp. no sign of allergic reaction or anaphylaxis NEURO: motor_intact, sensory_intact. cranial nerves 2-12 intact. cerebellar fxn intact Course - Re-evaluation Re-evalutation: 03/06/19 22:40 Pt here for chin abscess x 1 wk. Apparently the provider in triage had talked to the on-call surgeon, Dr. Burrows, prior to my examination of the patient and Dr Moon requested a CT with IV contrast of the face to further evaluate the area. Her labs were unremarkable. She is afebrile here. She is tolerating p.o. She has failed outpatient I&D's a few times now. CT of the face just showed some soft tissue inflammation without a drainable fluid collection and was otherwise negative per radiology and reviewed by myself. Patient informed of her findin gs. She is pain controlled here. Dr. Burrows did graciously come down to the ER and evaluate the patient and agreed to accept the patient to his service for further work-up and treatment. Care transferred to surgery in stable condition. Please refer to his note for further details of the visit. On reexam, pt improved with tx listed. remained stable. nontoxic. well appearing. pain controlled. kept npo Documentation achieved through voice recording which may lead to some occasional accidental typographical errors. Extensive efforts have been made to proof read documentation to make sure these are the least as possible. Category Date Time Status CT FACIAL AREA WITH [CT] Stat Exams 03/06/19 19:58 Completed CBC WITH DIFF [HEME] Stat Lab 03/06/19 21:13 Ordered CMP [COMPREHENSIVE METABOLIC PANEL] [CHEM] Stat Lab 03/06/19 21:13 Ordered Oxycodone HCl/Acetaminophen [Percocet 5-325 mg Tablet] Med 03/06/19 19:58 Discontinued 2 tab PO NOW ONE - Vital Signs Vital signs: Temp Pulse Resp BP Pulse Ox 99.2 F 73 20 128/83 H 97 03/06/19 18:35 03/06/19 18:35 03/06/19 18:35 03/06/19 18:35 03/06/19 18:35 - Laboratory Result Diagrams: 03/06/19 21:35 03/06/19 21:35 Laboratory results interpreted by me: Labs- Entire Visit 03/06/19 03/06/19 21:35 21:35 WBC 8.3 RBC 3.92 Hgb 12.6 Hct 36.2 MCV 93 MCH 32.2 MCHC 34.8 RDW 13.3 Plt Count 300 Lymph % (Auto) 36.3 Sharkey % (Auto) 6.6 Eos % (Auto) 2.4 Baso % (Auto) 0.5 Absolute Neuts (auto) 4.5 Absolute Lymphs (auto) 3.0 Absolute Monos (auto) 0.5 Absolute Eos (auto) 0.2 Absolute Basos (auto) 0.0 Seg Neutrophils % 54.2 Sodium 137.9 Potassium 4.1 Chloride 106 Carbon Dioxide 24 Anion Gap 8 BUN 13 Creatinine 0.83 Est GFR ( Amer) > 60 Est GFR (MDRD) Non-Af > 60 Glucose 88 Calcium 9.0 Total Bilirubin 0.5 Direct Bilirubin 0.2 Neonat Total Bilirubin Not Reportable Neonat Direct Bilirubin Not Reportable Neonat Indirect Bili Not Reportable AST 28 ALT 23 Alkaline Phosphatase 66 Total Protein 6.4 Albumin 3.7 - Diagnostic Test Radiology reviewed: Image reviewed, Reports reviewed Radiology results interpreted by me: 03/06/19 22:[address] 03/06/19 19:58 IMPRESSION: Mild inflammation involving the soft tissues of the chin correlates left-sided midline, without any focal fluid collection. No underlying osseous lesion. Discharge - Discharge Clinical Impression: Abscess or cellulitis of chin Condition: Stable Disposition: ADMITTED OBSERVATION Admitting Provider: Surgicalist - Dr Burrows Unit Admitted: Surgical Floor Instructions: Abscess (OM) Referrals: DARIUS WINSTON MD [Primary Care Provider] - Follow up as needed
--- NOTE | 2019-03-06 21:15 | RADIOLOGY REPORT (SQ) ---
EXAM DESCRIPTION: CT MAXILLOFACIAL WITH IV CONTRAST COMPLETED DATE/TME: 03/06/2019 19:58 CLINICAL HISTORY: 23 years, Female, eval for facial abscess to left chin area This exam was performed according to our departmental dose-optimization program which includes automated exposure control, adjustment of the mA and/or kVp according to patient size and/or use of iterative reconstruction technique where applicable. FINDINGS: There is soft tissue swelling anterior to the mandible inferiorly into the left side involving the chin. No significant fluid collection. The osseous structures in this region do not demonstrate any erosive lesions. Sinuses are clear. Orbits are intact, globes are intact and not proptotic. IMPRESSION: Mild inflammation involving the soft tissues of the chin correlates left-sided midline, without any focal fluid collection. No underlying osseous lesion.
[2019-03-06 21:54] LABS: ABSOLUTE EOSINOPHILS # (AUTO) 0.2 10^3/uL (0.0-0.6); ABSOLUTE MONOCYTES (AUTO) 0.5 10^3/uL (0.1-1.4); ABSOLUTE NEUT (AUTO) 4.5 10^3/uL (1.7-8.2); BASOPHILS % (AUTO) 0.5 % (0-2); EOSINOPHILS % (AUTO) 2.4 % (0-6); HEMATOCRIT 36.2 % (36.0-47.0); HEMOGLOBIN 12.6 g/dL (12.0-15.5); LYMPHOCYTES % (AUTO) 36.3 % (13-45); MEAN CORPUSCULAR HEMOGLOBIN 32.2 pg (27.0-33.4); MEAN CORPUSCULAR HGB CONC 34.8 g/dL (32.0-36.0); MEAN CORPUSCULAR VOLUME 93 fl (80-97); MONOCYTES % (AUTO) 6.6 % (3-13); PLATELET COUNT 300 10^3/uL (150-450); RED BLOOD COUNT 3.92 10^6/uL (3.72-5.28); RED CELL DISTRIBUTION WIDTH 13.3 % (11.5-14.0); SEGMENTED NEUTROPHILS % (AUTO) 54.2 % (42-78); TOTAL CELLS COUNTED % (AUTO) 100 %; WHITE BLOOD COUNT 8.3 10^3/uL (4.0-10.5)
[2019-03-06 22:12] LABS: ALBUMIN 3.7 g/dL (3.5-5.0); ALKALINE PHOSPHATASE 66 U/L (38-126); ANION GAP 8 (5-19); ASPARTATE AMINO TRANSFERASE 28 U/L (14-36); BILIRUBIN,DIRECT 0.2 mg/dL (0.0-0.4); BILIRUBIN,TOTAL 0.5 mg/dL (0.2-1.3); BLOOD UREA NITROGEN 13 mg/dL (7-20); CARBON DIOXIDE 24 mmol/L (22-30); CHLORIDE 106 mmol/L (98-107); GLUCOSE 88 mg/dL (75-110); POTASSIUM 4.1 mmol/L (3.6-5.0); TOTAL PROTEIN 6.4 g/dL (6.3-8.2)
--- NOTE | 2019-03-06 23:05 | PDOC H&P ---
History of Present Illness Admission Date/PCP: DARIUS WINSTON Patient complains of: Knot on the chin with pain History of Present Illness: BRANDON GATES is a 23 year old female who was noted with a pimple on her left chin just over a week ago that progressively worsened in the last several days with marked increase in size with redness with pain radiating to her jaw. Patient has undergone 3 separate medical evaluations with an attempted aspiration couple of days ago followed by incision and drainage procedure. She has received 1 dose of antibiotic in total. Patient noted that the swelling and pain was a lot worse yesterday until she had the incision and drainage. The swelling has markedly decreased since the drainage however she still has pain in this region that is radiating. Patient has no history of MRSA. She has no history of diabetes. She is otherwise healthy. Patient did note fever up to 101 this morning. Past Medical History Medical History: None Neurological Medical History: Reports: Migraine Endocrine Medical History: Denies: Diabetes Mellitus Type 1, Diabetes Mellitus Type 2 Past Surgical History Past Surgical History: Reports: Adenoidectomy, Orthopedic Surgery - Trigger finger release, Tonsillectomy, Other - [place] teeth extraction in the remote past. Social History Lives with: Spouse/Significant other Smoking Status: Never Smoker Frequency of Alcohol Use: Social Hx Recreational Drug Use: No Family History Family History: Reviewed & Not Pertinent Parental Family History Reviewed: Yes - Skin cancer Children Family History Reviewed: Yes Sibling(s) Family History Reviewed.: Yes Medication/Allergy Home Medications: Doxycycline Hyclate 100 mg PO BID #20 capsule 03/04/19 Allergies/Adverse Reactions: No Known Allergies Allergy (Verified 03/06/19 18:28) Physical Exam Vital Signs: Temp Pulse Resp BP Pulse Ox 99.2 F 73 20 128/83 H 97 03/06/19 18:35 03/06/19 18:35 03/06/19 18:35 03/06/19 18:35 03/06/19 18:35 Intake & Output 03/05/19 03/06/19 03/07/19 06:59 06:59 06:59 Weight 98 kg General appearance: PRESENT: no acute distress, cooperative Respiratory exam: PRESENT: clear to auscultation ryan Cardiovascular exam: PRESENT: RRR GI/Abdominal exam: PRESENT: other - Soft, nondistended, nontender to palpation. Neurological exam: PRESENT: alert, awake Psychiatric exam: PRESENT: appropriate affect Skin exam: PRESENT: other - At the patient's left chin there is a 4 x 4 centimeter region of swelling with a central cut with small amount of purulent drainage. I do not appreciate fluctuance. There is erythema and tenderness. There is no extension into the submental region. I do not appreciate any cervical lymphadenopathy. Results Laboratory Results: 03/06/19 21:35 03/06/19 21:35 03/06/19 03/06/19 21:35 21:35 WBC 8.3 RBC 3.92 Hgb 12.6 Hct 36.2 MCV 93 MCH 32.2 MCHC 34.8 RDW 13.3 Plt Count 300 Seg Neutrophils % 54.2 Sodium 137.9 Potassium 4.1 Chloride 106 Carbon Dioxide 24 Anion Gap 8 BUN 13 Creatinine 0.83 Est GFR ( Amer) > 60 Glucose 88 Calcium 9.0 Total Bilirubin 0.5 AST 28 Alkaline Phosphatase 66 Total Protein 6.4 Albumin 3.7 Impressions: Facial Bones CT 03/06/19 19:58 IMPRESSION: Mild inflammation involving the soft tissues of the chin correlates left-sided midline, without any focal fluid collection. No underlying osseous lesion. Assessment & Plan - Diagnosis (1) Abscess or cellulitis of chin Is this a current diagnosis for this admission?: Yes Plan: Abscess on the chin status post incision and drainage yesterday. Patient has not received a sufficient course of antibiotics, that is she only received [address] scan does not demonstrate a discrete abscess pocket. Suspect this region is more of phlegmonous at this point. Nevertheless patient may benefit from a surgical debridement. Will admit the patient for IV antibiotics and observation. Will determine in the next couple of days whether to proceed with a debridement. I do not see indication for surgical intervention tonight. Culture was taken of the small amount of pus at the wound.
[2019-03-06] MEDS ORDERED: ONDANSETRON HCL INJ/PF 4 MG/2 ML SDV IV ONE (23:18)
[2019-03-06] MEDS ORDERED: CLINDAMYCIN 600 MG/D5W RTU 600 MG/50 ML RTUPB IV ONE (23:30)
[2019-03-06] MEDS: NORMAL SALINE 1000 ML 1,000 ML IV PRN (23:35)
[2019-03-07 01:10] LABS: ABSOLUTE EOSINOPHILS # (AUTO) 0.2 10^3/uL (0.0-0.6); ABSOLUTE LYMPHOCYTES (AUTO) 2.5 10^3/uL (0.5-4.7); ABSOLUTE MONOCYTES (AUTO) 0.5 10^3/uL (0.1-1.4); ABSOLUTE NEUT (AUTO) 4.7 10^3/uL (1.7-8.2); BASOPHILS % (AUTO) 0.4 % (0-2); EOSINOPHILS % (AUTO) 2.3 % (0-6); HEMATOCRIT 36.6 % (36.0-47.0); HEMOGLOBIN 12.4 g/dL (12.0-15.5); LYMPHOCYTES % (AUTO) 31.1 % (13-45); MEAN CORPUSCULAR HEMOGLOBIN 31.3 pg (27.0-33.4); MEAN CORPUSCULAR HGB CONC 33.9 g/dL (32.0-36.0); MEAN CORPUSCULAR VOLUME 92 fl (80-97); MONOCYTES % (AUTO) 6.8 % (3-13); PLATELET COUNT 292 10^3/uL (150-450); RED BLOOD COUNT 3.96 10^6/uL (3.72-5.28); RED CELL DISTRIBUTION WIDTH 13.4 % (11.5-14.0); SEGMENTED NEUTROPHILS % (AUTO) 59.4 % (42-78); TOTAL CELLS COUNTED % (AUTO) 100 %
[2019-03-07] MEDS: MORPHINE SULFATE 10 MG/ML INJ IV PRN ×5 (01:13→22:06)
[2019-03-07] MEDS: ONDANSETRON HCL INJ/PF 4 MG/2 ML SDV IV PRN ×2 (01:46→12:36)
[2019-03-07] MEDS ORDERED: CLINDAMYCIN 600 MG/D5W RTU 600 MG/50 ML RTUPB IV SCH (06:00)
[2019-03-07 08:01] LABS: ABSOLUTE EOSINOPHILS # (AUTO) 0.2 10^3/uL (0.0-0.6); ABSOLUTE LYMPHOCYTES (AUTO) 2.2 10^3/uL (0.5-4.7); ABSOLUTE MONOCYTES (AUTO) 0.4 10^3/uL (0.1-1.4); ABSOLUTE NEUT (AUTO) 2.5 10^3/uL (1.7-8.2); BASOPHILS % (AUTO) 0.5 % (0-2); EOSINOPHILS % (AUTO) 3.1 % (0-6); HEMATOCRIT 35.1 % (36.0-47.0); LYMPHOCYTES % (AUTO) 41.9 % (13-45); MEAN CORPUSCULAR HEMOGLOBIN 31.8 pg (27.0-33.4); MEAN CORPUSCULAR HGB CONC 34.3 g/dL (32.0-36.0); MEAN CORPUSCULAR VOLUME 93 fl (80-97); MONOCYTES % (AUTO) 7.6 % (3-13); PLATELET COUNT 284 10^3/uL (150-450); RED BLOOD COUNT 3.78 10^6/uL (3.72-5.28); RED CELL DISTRIBUTION WIDTH 13.6 % (11.5-14.0); SEGMENTED NEUTROPHILS % (AUTO) 46.9 % (42-78); TOTAL CELLS COUNTED % (AUTO) 100 %; WHITE BLOOD COUNT 5.3 10^3/uL (4.0-10.5)
[2019-03-07 08:24] LABS: ANION GAP 7 (5-19); BLOOD UREA NITROGEN 11 mg/dL (7-20); CALCIUM 8.8 mg/dL (8.4-10.2); CARBON DIOXIDE 25 mmol/L (22-30); CHLORIDE 110 mmol/L (98-107); GLUCOSE 86 mg/dL (75-110); POTASSIUM 4.1 mmol/L (3.6-5.0)
[2019-03-07] MEDS ORDERED: FENTANYL CITRATE INJ/PF 100 MCG/2 ML AMPUL ONE (08:52)
[2019-03-07] MEDS ORDERED: PROPOFOL INJ 200 MG/20 ML VIAL IV ONE (08:53)
[2019-03-07] MEDS ORDERED: ONDANSETRON HCL INJ/PF 4 MG/2 ML SDV ONE (08:53)
[2019-03-07] MEDS ORDERED: MIDAZOLAM 2 MG/2 ML INJ ONE (08:53)
[2019-03-07] MEDS: NORMAL SALINE 1000 ML 1,000 ML IV PRN ×3 (09:01→12:36)
[2019-03-07] MEDS ORDERED: LIDOCAINE 0.5% INJ-PF (5 MG/ML) 50 ML SDV ONE (09:04)
[2019-03-07] MEDS ORDERED: LIDOCAINE 1% INJ-PF (10 MG/ML) 30 ML SDV ONE (09:42)
[2019-03-07] MEDS ORDERED: LIDOCAINE 1% INJ (10 MG/ML) 10 ML MDV INJ ONE (10:27)
[2019-03-07] MEDS ORDERED: DIPHENHYDRAMINE HCL 50 MG/ML VIAL IV PRN (10:35)
[2019-03-07] MEDS ORDERED: PROMETHAZINE HCL INJ 25 MG/1 ML VIAL IV PRN ×2 (10:35)
[2019-03-07] MEDS ORDERED: MEPERIDINE HCL/PF INJ 25 MG/1 ML DISP.SYRIN IV PRN (10:35)
[2019-03-07] MEDS ORDERED: OXYCODONE-ACETAMINOPHEN 5-325 MG TABLET PO PRN (10:46)
[2019-03-07] MEDS ORDERED: LIDOCAINE 2% INJ (20 MG/ML) 20 ML MDV ONE (10:58)
--- NOTE | 2019-03-07 10:59 | Operative Report ---
Operative Report DATE OF SURGERY: 03/07/19 Operative Report: I&D Chin abscess PREOPERATIVE DIAGNOSIS: Chin abscess POSTOPERATIVE DIAGNOSIS: same OPERATION: Incision and drainage abscess of chin SURGEON: FIGUEROA BOSS ANESTHESIA: LMAC COMPLICATIONS: none ESTIMATED BLOOD LOSS: 2 ccs INTRAOPERATIVE FINDINGS: abscess of chin PROCEDURE: After adequate IV sedation the chin area was then prepped and draped in the sterile fashion. Appropriate timeout was called. Local anesthesia infiltrated around the abscess site. The abscess opening was then probed and small amount of pus drained. Specimen for C/S done. The cavity was then opened sharply in a vertical fashion. It was then irrigated and then packed with 0.25 inch iodoform gauze. Was then dressed with a 4x4 and taped. Needle and sponge counts were correct. Brought to PACU in satisfactory condition.
[2019-03-07] MEDS: KETOROLAC TROMETHAMINE INJ/PF 30 MG/1 ML SDV IV SCH ×2 (11:33→17:41)
[2019-03-07] MEDS: CLINDAMYCIN 600 MG/D5W RTU 600 MG/50 ML RTUPB IV SCH ×2 (12:25→17:39)
--- NOTE | 2019-03-07 18:28 | RADIOLOGY REPORT (SQ) ---
EXAM DESCRIPTION: CHEST SINGLE VIEW COMPLETED DATE/TIME: 03/07/2019 6:07 pm REASON FOR STUDY: chest tightness COMPARISON: 02/09/2019 TECHNIQUE: Single frontal radiographic view of the chest acquired. NUMBER OF VIEWS: One view. LIMITATIONS: None. FINDINGS: LUNGS AND PLEURA: No pneumothorax. No consolidation or pleural effusion. MEDIASTINUM AND HILAR STRUCTURES: Stable. HEART AND VASCULAR STRUCTURES: Stable. BONES: No acute findings. HARDWARE: None in the chest. OTHER: No other significant finding. IMPRESSION: NO ACUTE FINDINGS. TECHNICAL DOCUMENTATION: JOB ID: [id number] 2010 [employer]- All Rights Reserved Reading location - IP/workstation name: [email or web address]
--- NOTE | 2019-03-07 18:49 | PDOC CONSULTATION ---
Consultation Consult Date: 03/07/19 - Patient seen at 1800 Provider Consulted: PHYLICIA FLORES JR History of Present Illness Admission Date/PCP: 03/06/19 23:08 DARIUS WINSTON History of Present Illness: BRANDON GATES is a 23 year old female who was admitted to the hospital yesterday abscess on her chin. Patient states that for about 2 weeks now she has had started off as to pimples, on the left side of her chin.. Patient states however the last 2 to 3 days it has become larger red and swollen and painful. Today the patient underwent an I&D procedure with no complications. Denied by an hour ago patient started complaining of some mid sternal chest pain. Patient also states that she had a little difficulty breathing. She denies pain radiating to the left arm or going up into the jaw pain does not go into the back. She denies nausea vomiting. Patient has no previous history of cardiac problems. Patient does state that she has had trouble with breathing in the past. Patient also states that about 9 months ago she had an EGD done. This was for another problem, patient is never taking medication for GERD Past Medical History Neurological Medical History: Reports: Migraine Endocrine Medical History: Denies: Diabetes Mellitus Type 1, Diabetes Mellitus Type 2 Past Surgical History Past Surgical History: Reports: Adenoidectomy, Orthopedic Surgery - Trigger finger release, Tonsillectomy, Other - [place] teeth extraction in the remote past. Social History Lives with: Spouse/Significant other Smoking Status: Never Smoker Frequency of Alcohol Use: Social Hx Recreational Drug Use: No - Advance Directive Resuscitation Status: Full Code Family History Family History: Reviewed & Not Pertinent Parental Family History Reviewed: No Children Family History Reviewed: No Sibling(s) Family History Reviewed.: No Medication/Allergy Home Medications: No Home Medications 03/07/19 Allergies/Adverse Reactions: No Known Allergies Allergy (Verified 03/06/19 18:28) Review of Systems Constitutional: ABSENT: chills, fever(s), headache(s), weight gain, weight loss Cardiovascular: ABSENT: chest pain, dyspnea on exertion, edema, orthropnea, palpitations Respiratory: ABSENT: cough, hemoptysis Gastrointestinal: ABSENT: abdominal pain, constipation, diarrhea, hematemesis, hematochezia, nausea, vomiting Integumentary: PRESENT: other - She does state that she had a "pimple" on her buttocks about 2 weeks ago when these other 2 pimples came up on her face. The pimple on her buttocks went away on its own, but the 2 on her face got worse Neurological: ABSENT: abnormal gait, abnormal speech, confusion, dizziness, focal weakness, syncope Physical Exam Vital Signs: Temp Pulse Resp BP Pulse Ox 98.0 F 79 16 110/61 99 03/07/19 17:24 03/07/19 17:24 03/07/19 17:24 03/07/19 17:24 03/07/19 17:24 Intake & Output 03/06/19 03/07/19 03/08/19 06:59 06:59 06:59 Intake Total 50 2433 Output Total 0 Balance 50 2433 Weight 98.3 kg General appearance: PRESENT: no acute distress, other - Nurse was present as a manager business information Respiratory exam: PRESENT: clear to auscultation ryan. ABSENT: rales, rhonchi, wheezes Cardiovascular exam: PRESENT: RRR, other - [place] Sourer present patient was tender to palpate over the sternum and the pain was reproducible.. ABSENT: diastolic murmur, rubs, systolic murmur GI/Abdominal exam: PRESENT: tenderness - Slight tenderness to the epigastric region with palpation, no rebound no guarding Neurological exam: PRESENT: alert, awake, oriented to person, oriented to place, oriented to time, oriented to situation, CN II-XII grossly intact. ABSENT: motor sensory deficit Psychiatric exam: PRESENT: appropriate affect, normal mood, other - Mother was in the room following the exam we discussed the EKG and work-up. ABSENT: homicidal ideation, suicidal ideation Results Laboratory Results: 03/07/19 07:23 03/07/19 07:23 03/06/19 03/06/19 03/06/19 21:35 21:35 21:35 WBC 8.3 RBC 3.92 Hgb 12.6 Hct 36.2 MCV 93 MCH 32.2 MCHC 34.8 RDW 13.3 Plt Count 300 Seg Neutrophils % 54.2 Sodium 137.9 Potassium 4.1 Chloride 106 Carbon Dioxide 24 Anion Gap 8 BUN 13 Creatinine 0.83 Est GFR ( Amer) > 60 Glucose 88 Calcium 9.0 Total Bilirubin 0.5 AST 28 Alkaline Phosphatase 66 Total Protein 6.4 Albumin 3.7 Serum HCG, Qual NEGATIVE 09/03/07/19 03/07/19 01:00 07:23 07:23 WBC 8.0 5.3 RBC 3.96 3.78 Hgb 12.4 12.0 Hct 36.6 35.1 L MCV 92 93 MCH 31.3 31.8 MCHC 33.9 34.3 RDW 13.4 13.6 Plt Count 292 284 Seg Neutrophils % 59.4 46.9 Sodium 141.7 Potassium 4.1 Chloride 110 H Carbon Dioxide 25 Anion Gap 7 BUN 11 Creatinine 0.75 Est GFR ( Amer) > 60 Glucose 86 Calcium 8.8 Total Bilirubin AST Alkaline Phosphatase Total Protein Albumin Serum HCG, Qual Impressions: Facial Bones CT 03/06/19 19:58 IMPRESSION: Mild inflammation involving the soft tissues of the chin correlates left-sided midline, without any focal fluid collection. No underlying osseous lesion. Chest X-Ray 03/07/19 17:46 IMPRESSION: NO ACUTE FINDINGS. Assessment and Plan - Diagnosis (1) Chest pain Is this a current diagnosis for this admission?: Yes Plan: This pain seems to be reproducible and therefore could very well be costocho ndritis or pleuritic or some sort of musculoskeletal pain. However the patient did have general anesthesia today and has been at bedrest for some time, therefore one has to consider a PE. Other consideration would be GERD. EKG at the bedside appears to be normal with no acute findings, review of chest x-ray shows no evidence of pneumothorax or cardiopulmonary disease. Patient will have troponin every 6 hours. I have not ordered nitro as I do not feel it is cardiac. I did order IV Pepcid. Patient does have pain medicine ordered. Vital signs are stable patient is not hypoxic , nor is she tachycardic , blood pressure is stable as well (2) Shortness of breath Is this a current diagnosis for this admission?: Yes Plan: Good breath sounds in all lung martin, O2 sat is 99% on room air. Respirations are approximately 14 and unlabored. Will order d-dimer and proceed as indicated (3) Cellulitis and abscess of face Is this a current diagnosis for this admission?: Yes Plan: No significant edema to the left cheek or face. No significant redness. CBC from this morning showed a white count 5.3 Will defer to surgery. I do not think this is a reaction to the clindamycin. - Time Time Spent with patient: 35 or more minutes - She appears medically stable. Report will be given to the nighttime hospitalist
[2019-03-07] MEDS ORDERED: FAMOTIDINE INJ/PF 20 MG/2 ML SDV IV SCH (19:00)
[2019-03-07 19:15] LABS: CREATINE KINASE MB 0.38 ng/mL (<4.55)
[2019-03-07 19:17] LABS: TROPONIN I < 0.012 ng/mL
--- NOTE | 2019-03-07 23:57 | EKG REPORT ---
SEVERITY:- BORDERLINE ECG - SINUS RHYTHM BORDERLINE T ABNORMALITIES, ANTERIOR LEADS : Confirmed by: Olman Zhu MD 07-Mar-2019 23:56:14
[2019-03-08] MEDS: KETOROLAC TROMETHAMINE INJ/PF 30 MG/1 ML SDV IV SCH ×2 (00:09→05:43)
[2019-03-08] MEDS: CLINDAMYCIN 600 MG/D5W RTU 600 MG/50 ML RTUPB IV SCH ×2 (00:10→05:33)
[2019-03-08] MEDS: MORPHINE SULFATE 10 MG/ML INJ IV PRN (05:34)
[2019-03-08] MEDS: NORMAL SALINE 1000 ML 1,000 ML IV PRN (05:34)
[2019-03-08 09:40] VITALS: BP 105/63
--- NOTE | 2019-03-14 22:28 | PDOC DISCHARGE SUMMARY ---
General - Admit/Disc Date/PCP Admission Date/Primary Care Provider: 03/06/19 23:08 DARIUS WINSTON Discharge Date: 03/08/19 - Discharge Diagnosis Final Diagnosis: Abscess on the left side of the chin - Assessment Summary: 23-year-old female noted pimple along the left lower chin over a week ago. She is area along the left chin swollen and red and subsequently was aspirated and drained in urgent care center. Patient was seen and admitted on 03/06/2019 for abscess of the left chin. An incision and drainage drainage was done by Dr. Hudson on 02/25/1919 and patient subsequently discharged on 03/08/2019 on p.o. clindamycin. Patient to be followed up in the surgical clinic in about 10 days. - Additional Information Resuscitation Status: Full Code Discharge Diet: As Tolerated Discharge Activity: Activity As Tolerated Referrals: [facility] [Provider Group] - 03/21/19 10:45 am (WITH DR. SALAZAR) Home Medications: No Home Medications 03/07/19 History of Present Illiness History of Present Illness: BRANDON GATES is a 23 year old female Physical Exam Vital Signs: Temp Pulse Resp BP Pulse Ox 97.6 F 57 L 17 110/76 94 03/08/19 08:59 03/08/19 08:59 03/08/19 08:59 03/08/19 08:59 03/08/19 08:59 Results Laboratory Results: WBC 5.3 10^3/uL (4.0-10.5) 03/07/19 07:23 RBC 3.78 10^6/uL (3.72-5.28) 03/07/19 07:23 Hgb 12.0 g/dL (12.0-15.5) 03/07/19 07:23 Hct 35.1 % (36.0-47.0) L 03/07/19 07:23 MCV 93 fl (80-97) 03/07/19 07:23 MCH 31.8 pg (27.0-33.4) 03/07/19 07:23 MCHC 34.3 g/dL (32.0-36.0) 03/07/19 07:23 RDW 13.6 % (11.5-14.0) 03/07/19 07:23 Plt Count 284 10^3/uL (150-450) 03/07/19 07:23 Lymph % (Auto) 41.9 % (13-45) 03/07/19 07:23 [place] % (Auto) 7.6 % (3-13) 03/07/19 07:23 Eos % (Auto) 3.1 % (0-6) 03/07/19 07:23 Baso % (Auto) 0.5 % (0-2) 03/07/19 07:23 Absolute Neuts (auto) 2.5 10^3/uL (1.7-8.2) 03/07/19 07:23 Absolute Lymphs (auto) 2.2 10^3/uL (0.5-4.7) 03/07/19 07:23 Absolute Monos (auto) 0.4 10^3/uL (0.1-1.4) 03/07/19 07:23 Absolute Eos (auto) 0.2 10^3/uL (0.0-0.6) 03/07/19 07:23 Absolute Basos (auto) 0.0 10^3/uL (0.0-0.2) 03/07/19 07:23 Seg Neutrophils % 46.9 % (42-78) 03/07/19 07:23 D-Dimer 0.35 ug/mL (0.00-0.50) 03/07/19 18:34 Sodium 141.7 mmol/L (137-145) 03/07/19 07:23 Potassium 4.1 mmol/L (3.6-5.0) 03/07/19 07:23 Chloride 110 mmol/L (98-107) H 03/07/19 07:23 Carbon Dioxide 25 mmol/L (22-30) 03/07/19 07:23 Anion Gap 7 (5-19) 03/07/19 07:23 BUN 11 mg/dL (7-20) 03/07/19 07:23 Creatinine 0.75 mg/dL (0.52-1.25) 03/07/19 07:23 Est GFR ( Amer) > 60 (>60) 03/07/19 07:23 Est GFR (MDRD) Non-Af > 60 (>60) 03/07/19 07:23 Glucose 86 mg/dL (75-110) 03/07/19 07:23 Calcium 8.8 mg/dL (8.4-10.2) 03/07/19 07:23 Total Bilirubin 0.5 mg/dL (0.2-1.3) 03/06/19 21:35 Direct Bilirubin 0.2 mg/dL (0.0-0.4) 03/06/19 21:35 Neonat Total Bilirubin Not Reportable 03/06/19 21:35 Neonat Direct Bilirubin Not Reportable 03/06/19 21:35 Neonat Indirect Bili Not Reportable 03/06/19 21:35 AST 28 U/L (14-36) 03/06/19 21:35 ALT 23 U/L (<35) 03/06/19 21:35 Alkaline Phosphatase 66 U/L (38-126) 03/06/19 21:35 CK-MB (CK-2) 0.38 ng/mL (<4.55) 03/07/19 18:34 Troponin I < 0.012 ng/mL 03/08/19 07:23 Total Protein 6.4 g/dL (6.3-8.2) 03/06/19 21:35 Albumin 3.7 g/dL (3.5-5.0) 03/06/19 21:35 Serum HCG, Qual NEGATIVE (NEGATIVE) 03/06/19 21:35 03/07/19 03/07/19 03/08/19 18:34 18:34 07:23 CK-MB (CK-2) 0.38 Troponin I < 0.012 < 0.012 < 0.012 Impressions: Facial Bones CT 03/06/19 19:58 IMPRESSION: Mild inflammation involving the soft tissues of the chin correlates left-sided midline, without any focal fluid collection. No underlying osseous lesion. Chest X-Ray 03/07/19 17:46 IMPRESSION: NO ACUTE FINDINGS.
== END 2019-03-08 09:15 | disposition home or self-care (01) ==
LOC: ER 18:25 → EH 23:08 → 5 03-07 00:40
PROVIDERS: ADMIT Surgery; ATTEND Surgery
PROC: 0H91XZZ Drainage of Face Skin, External Approach (ICD-10-PCS; principal; 2019-03-07 09:30)
DX: L02.01 Cutaneous abscess of face (principal); R07.9 Chest pain, unspecified; R06.02 Shortness of breath; R50.9 Fever, unspecified; E66.9 Obesity, unspecified; Z80.8 Family history of malignant neoplasm of other organs or systems; Z87.2 Personal history of diseases of the skin and subcutaneous tissue; Z98.890 Other specified postprocedural states
CPT/HCPCS: 99285; 96375; 96365; 36415 ×3; 87040 ×2; 87070 ×2; 87205 ×2; 82553; 84703; 85025 ×2; 87075 ×2; 87077 ×2; 80048; 80053; 84484 ×2; 87186 ×2; 85379; 71045; 70487; 93005; 93010; 00300; 10060; G0378 ×3; A6266 ×2; J3490 ×3; J3010; J1885 ×2; J2270 ×2; J2405 ×2; J7030 ×3; J2704; S0028; 300; J2250

== ENCOUNTER → 2019-09-10 | Outpatient (CLI) | payer OTHER ==
--- NOTE | 2019-09-10 14:14 | RADIOLOGY REPORT (SQ) ---
EXAM DESCRIPTION: CHEST PA/LATERAL COMPLETED DATE/TIME: 09/10/2019 1:01 pm REASON FOR STUDY: ACUTE BRONCHITIS, UNSPECIFIED COMPARISON: 03/07/2019 EXAM PARAMETERS: NUMBER OF VIEWS: two views TECHNIQUE: Digital Frontal and Lateral radiographic views of the chest acquired. RADIATION DOSE: NA LIMITATIONS: none FINDINGS: LUNGS AND PLEURA: No opacities, masses or pneumothorax. No pleural effusion. MEDIASTINUM AND HILAR STRUCTURES: No masses or contour abnormalities. HEART AND VASCULAR STRUCTURES: Heart normal size. No evidence for failure. BONES: No acute findings. HARDWARE: None in the chest. OTHER: No other significant finding. IMPRESSION: NO SIGNIFICANT RADIOGRAPHIC FINDING IN THE CHEST. TECHNICAL DOCUMENTATION: JOB ID: [id number] 2010 [employer]- All Rights Reserved Reading location - IP/workstation name: [email or web address]
== END ==
LOC: OD 12:46
PROVIDERS: ATTEND Internal Medicine
DX: J20.9 Acute bronchitis, unspecified (principal)
CPT/HCPCS: 71046

== ENCOUNTER 2019-10-28 12:53 | Emergency (ER) | payer OTHER ==
[2019-10-28 13:03] VITALS: BP 126/80
--- NOTE | 2019-10-28 13:48 | ER Document Report ---
HPI - HPI Time Seen by Provider: 10/28/19 13:18 Pain Level: 5 Notes: 24-year-old female patient presents emergency department chief complaint of right foot pain and left elbow pain. Patient reports she tripped and fell. She denies taking any medication prior to arrival. She denies striking her head or any loss of consciousness. - CONSTITUTIONAL Constitutional: DENIES: Fever, Chills - REPRODUCTIVE LMP: 10/13 Reproductive: DENIES: : - DERM Skin Color: Normal Past Medical History - General Information source: Patient - Social History Smoking Status: Never Smoker Chew tobacco use (# tins/day): No Frequency of alcohol use: Social Drug Abuse: None Family History: Reviewed & Not Pertinent Patient has homicidal ideation: No Neurological Medical History: Reports: Hx Migraine Endocrine Medical History: Denies: Hx Diabetes Mellitus Type 1, Hx Diabetes Mellitus Type 2 Renal/ Medical History: Denies: Hx Peritoneal Dialysis Skin Medical History: Reports Hx Cellulitis Past Surgical History: Reports: Hx Adenoidectomy, Hx Oral Surgery, Hx Orthopedic Surgery - Trigger finger release, Hx Tonsillectomy, Other - [place] teeth extraction in the remote past. - Immunizations Immunizations up to date: Yes Hx Diphtheria, Pertussis, Tetanus Vaccination: Yes Vertical Provider Document - CONSTITUTIONAL Notes: PHYSICAL EXAMINATION: GENERAL: Well-appearing, well-nourished and in no acute distress. HEAD: Atraumatic, normocephalic. EYES: Pupils equal round extraocular movements intact, conjunctiva are normal. ENT: Nares patent NECK: Normal range of motion LUNGS: No respiratory distress Musculoskeletal: Limited range of motion to right foot, cap refill less than 3 seconds, strong dorsalis pedis pulse. Swelling noted over the dorsal aspect of the foot. No ecchymosis or erythema noted. Tenderness with range of motion of left elbow, no obvious swelling, deformity or ecchymosis noted. NEUROLOGICAL: Normal speech, normal gait. PSYCH: Normal mood, normal affect. SKIN: Warm, Dry, normal turgor, no rashes or lesions noted. - INFECTION CONTROL TRAVEL OUTSIDE OF THE [place] IN LAST 30 DAYS: No Course - Re-evaluation Re-evalutation: Elbow X-Ray 10/28/19 13:22 IMPRESSION: No radiographic abnormality of the left elbow. Foot X-Ray 10/28/19 13:22 IMPRESSION: NEGATIVE STUDY OF THE RIGHT FOOT. NO RADIOGRAPHIC EVIDENCE OF ACUTE INJURY. - Vital Signs Vital signs: Temp Pulse Resp BP Pulse Ox 98.7 F 83 20 126/80 H 99 10/28/19 13:18 10/28/19 13:01 10/28/19 13:01 10/28/19 13:01 10/28/19 13:01 Procedures - Immobilization Right foot Pre-Proc Neuro Vasc Exam: Normal Immobilizer type: Ravi wrap, Crutches Performed by: PCT Post-Proc Neuro Vasc Exam: Normal Alignment checked and good: Yes Discharge - Discharge Clinical Impression: Contusion of right foot Qualifiers: Encounter type: initial encounter Qualified Code(s): S90.31XA - Contusion of right foot, initial encounter Left elbow contusion Qualifiers: Encounter type: initial encounter Qualified Code(s): S50.02XA - Contusion of left elbow, initial encounter Condition: Stable Disposition: HOME, SELF-CARE Additional Instructions: Contusion Your injury has resulted in a contusion -- a crushing of the deep tissues. No injury to important structures was detected during the physician's exam. Contusions vary in the amount of pain they cause, and in the length of time requ ired for healing. Typically, the area will become bruised, and will remain painful to touch for two or three weeks. However, most patients are back to working and playing within a few days. After the initial period of rest and cold-packs, your symptoms (together with the doctor's recommendations) will determine how rapidly you can get back to full activity. Usually this means "do what feels okay, but don't do things that hurt." If re-examination was recommended, it's important to follow up as instructed. Call the doctor or return any time if pain increases, if swelling becomes severe, if you develop numbness or weakness in an injured extremity, or if any other alarming symptoms occur. Ice & Elevation Apply ice packs frequently against the painful area. Many different schedules are recommended, such as "20 minutes on, 20 minutes off" or "one hour ice, two hours rest." If you need to work, you may need to go longer between ice treatments. You should plan to have the area ice packed AT LEAST one-fourth of the time. The ice should be applied over the wrap, tape, or splint, or over a layer of cloth -- not directly against the skin. Some ice bags have a built-in cloth and can be put directly on the skin. Your injured part should be elevated as much as possible over the next 48 hours. Try to keep the injury above the level of the heart. Avoid use of the injured area. Elevation and rest will decrease the swelling. Ibuprofen Ibuprofen is an excellent, safe drug for pain control. In addition, it has potent antiinflammatory effects which are beneficial, especially in the treatment of injuries, arthritis, or tendonitis. It's best to take ibuprofen with food. Persons with ulcer disease or allergy to aspirin should notify their physician of this before taking ibuprofen. Take the medication exactly as prescribed. Don't take additional doses unless instructed to do so by your doctor. If you develop wheezing, shortness of breath, hives, faintness, stomach pain, vomiting, or dark black stools, return for re-evaluation at once. The x-rays were negative for any fracture or dislocation. Please take ibuprofen [id number] as directed to help with pain and inflammation. Forms: Treatment of Relative/Child Referrals: DARIUS WINSTON MD [Primary Care Provider] - Follow up as needed
--- NOTE | 2019-10-28 14:14 | RADIOLOGY REPORT (SQ) ---
EXAM DESCRIPTION: FOOT RIGHT COMPLETE IMAGES COMPLETED DATE/TIME: 10/28/2019 1:00 pm REASON FOR STUDY: fall/crush injury COMPARISON: None. NUMBER OF VIEWS: Three views. TECHNIQUE: AP, lateral and oblique radiographic images acquired of the right foot. LIMITATIONS: None. FINDINGS: MINERALIZATION: Normal. BONES: No acute fracture or dislocation. No worrisome bone lesions. JOINTS: No effusions. SOFT TISSUES: No soft tissue swelling. No foreign body. OTHER: No other significant finding. IMPRESSION: NEGATIVE STUDY OF THE RIGHT FOOT. NO RADIOGRAPHIC EVIDENCE OF ACUTE INJURY. TECHNICAL DOCUMENTATION: JOB ID: [id number] 2010 [employer]- All Rights Reserved Reading location - IP/workstation name: [email or web address]
--- NOTE | 2019-10-28 14:14 | RADIOLOGY REPORT (SQ) ---
EXAM DESCRIPTION: ELBOW LEFT OVER 2 VIEWS IMAGES COMPLETED DATE/TIME: 10/28/2019 1:00 pm REASON FOR STUDY: fall/crush injury COMPARISON: None. NUMBER OF VIEWS: Four views. TECHNIQUE: AP, lateral, and both oblique radiographic images acquired of the left elbow. LIMITATIONS: None. FINDINGS: MINERALIZATION: Normal. BONES: No acute fracture or dislocation. No worrisome bone lesions. JOINT: No effusion. SOFT TISSUES: No soft tissue swelling. No foreign body. OTHER: No other significant finding. IMPRESSION: No radiographic abnormality of the left elbow. TECHNICAL DOCUMENTATION: JOB ID: [id number] [employer]- All Rights Reserved Reading location - IP/workstation name: [id number]
== END 2019-10-28 14:26 | disposition home or self-care (01) ==
LOC: ER 12:53
DX: S90.31XA Contusion of right foot, initial encounter (principal); S50.02XA Contusion of left elbow, initial encounter; M25.522 Pain in left elbow; W01.0XXA Fall on same level from slipping, tripping and stumbling without subsequent striking against object, initial encounter
CPT/HCPCS: 99283

== ENCOUNTER 2020-01-13 13:53 | Emergency (ER) | payer OTHER ==
--- NOTE | 2020-01-13 15:29 | ER Document Report ---
HPI - HPI Time Seen by Provider: 01/13/20 15:17 Pain Level: 3 Context: Patient is a 24-year-old female who presents to the emergency department with a chief complaint of lower eyelid tenderness. Patient states that she noticed a possible abscess couple days ago. Patient has history of an abscess that required surgery in the past. Patient states that she has not recently been on antibiotics to treat the stye on her eye. States that she feels the tenderness is spreading down to her right cheek. - ROS Systems Reviewed and Negative: Yes All other systems reviewed and negative - CONSTITUTIONAL Constitutional: DENIES: Fever, Chills - EENT EENT: REPORTS: Eye problems - 2 styes to right lwr lid. DENIES: Sore Throat - CARDIOVASCULAR Cardiovascular: DENIES: Chest pain - RESPIRATORY Respiratory: DENIES: Trouble Breathing, Coughing - REPRODUCTIVE Reproductive: DENIES: : - DERM Skin Color: Normal Skin Problems: Pustule - Right lower eyelid Past Medical History - General Information source: Patient - Social History Smoking Status: Never Smoker Chew tobacco use (# tins/day): No Drug Abuse: None Family History: Reviewed & Not Pertinent Neurological Medical History: Reports: Hx Migraine Endocrine Medical History: Denies: Hx Diabetes Mellitus Type 1, Hx Diabetes Mellitus Type 2 Renal/ Medical History: Denies: Hx Peritoneal Dialysis Skin Medical History: Reports Hx Cellulitis Past Surgical History: Reports: Hx Adenoidectomy, Hx Oral Surgery, Hx Orthopedic Surgery - Trigger finger release, Hx Tonsillectomy, Other - [place] teeth extraction in the remote past. - Immunizations Immunizations up to date: Yes Hx Diphtheria, Pertussis, Tetanus Vaccination: Yes Vertical Provider Document - CONSTITUTIONAL Agree With Documented VS: Yes Exam Limitations: No Limitations General Appearance: No Apparent Distress - INFECTION CONTROL TRAVEL OUTSIDE OF THE [place] IN LAST 30 DAYS: No - HEENT HEENT: Atraumatic, Normocephalic, PERRLA. negative: Conjuctival Injection Notes: 2 styes noted to right eye. - NECK Neck: Normal Inspection - RESPIRATORY Respiratory: Breath Sounds Normal, No Respiratory Distress - CARDIOVASCULAR Cardiovascular: Regular Rate, Regular Rhythm Pulses: Normal: Radial - MUSCULOSKELETAL/EXTREMETIES Musculoskeletal/Extremeties: FROM - NEURO Level of Consciousness: Awake, Alert, Appropriate Motor/Sensory: No Motor Deficit, No Sensory Deficit - DERM Integumentary: Warm, Dry, No Rash Course - Re-evaluation Re-evalutation: 01/13/20 Patient has a stye noted to her right. Since she feels this is a possible abscess again, we will start her on clindamycin. We will start her on Polytrim eyedrops. We will also refer her to ophthalmology for possible I&D. Have a low suspicion for necrotizing fasciitis. Patient is able to close eyelids with no difficulty. Follow-up precautions were given. Verbal discharge instructions were given to the patient. They verbalized understanding. They are stable for discharge. - Vital Signs Vital signs: Temp Pulse Resp BP Pulse Ox 99 F 93 18 140/67 H 99 01/13/20 15:17 01/13/20 14:03 01/13/20 14:03 01/13/20 14:03 01/13/20 14:03 Discharge - Discharge Clinical Impression: Abscess Hordeolum externum (stye) Qualifiers: Laterality: right Eyelid: lower Qualified Code(s): H00.012 - Hordeolum externum right lower eyelid Condition: Stable Disposition: HOME, SELF-CARE Additional Instructions: You were seen today in the emergency department for a stye on your eye that is developing into an abscess. Take the antibiotics as prescribed. Continue to apply warm compresses on your eye. Use the eyedrops to help prevent conjunctivitis, commonly known as "pinkeye." Follow-up with eye surgeon in regards to this visit. Prescriptions: Clindamycin HCl [Cleocin 150 mg Capsule] 300 mg PO Q6 7 Days #56 capsule Polymyxin B Sulf/Trimethoprim [Polytrim Eye Drops] 1 drop OD Q3H 7 Days #10 ml Forms: Return to Work Referrals: DARIUS WINSTON MD [Primary Care Provider] - Follow up tomorrow MILAGROS SLATER MD [ACTIVE STAFF] - Follow up tomorrow
[2020-01-13 15:37] VITALS: BP 136/92
== END 2020-01-13 15:33 | disposition home or self-care (01) ==
LOC: ER 13:53
DX: H00.012 Hordeolum externum right lower eyelid (principal); L02.91 Cutaneous abscess, unspecified
CPT/HCPCS: 99282